=== PATIENT | female | born 1965 | race African-American/Black ===

== ENCOUNTER 2016-06-30 22:44 | Emergency (ER) | payer MEDICAID ==
[2016-07-01 00:30] VITALS: BP 115/71
== END 2016-07-01 00:30 | disposition home or self-care (01) ==
LOC: ED 22:44
DX: T45.511A Poisoning by anticoagulants, accidental (unintentional), initial encounter (principal); J40 Bronchitis, not specified as acute or chronic; Y92.89 Other specified places as the place of occurrence of the external cause
CPT/HCPCS: J7613; J7644